=== PATIENT | male | born 1970 | race Caucasian/White ===

== ENCOUNTER 2024-09-20 06:19 | Day surgery (SDC) | payer OTHER, SELFPAY | END 2024-09-20 15:20 | disposition home or self-care (01) | LOC: GI 06:19 | PROVIDERS: ATTENDING PHYSICIAN Internal Medicine Gastroenterology | DX: Z12.11 Encounter for screening for malignant neoplasm of colon (principal); R19.5 Other fecal abnormalities; D12.3 Benign neoplasm of transverse colon; K57.30 Diverticulosis of large intestine without perforation or abscess without bleeding; K64.0 First degree hemorrhoids | CPT/HCPCS: 45385; 45380; 88305 ==